=== PATIENT | male | born 1970 | race African-American/Black ===

== ENCOUNTER 2022-05-25 06:33 | Inpatient (IN) | payer SELFPAY ==
[~2022-05-25] VITALS: Ht 172.7 cm; Wt 76.7 kg
[2022-05-25] MEDS ORDERED: IOHEXOL-350 100 ML BOTTLE ONE (07:16)
[2022-05-25 07:28] LABS: EOSINOPHILS % 0.8 % (0.0-5.0); HEMATOCRIT. 40.7 % (42.0-52.0); HEMOGLOBIN. 13.4 g/dL (14.0-18.0); LYMPHOCYTES % 36.6 % (20.0-50.0); MEAN CORPUSCULAR HEMOGLOBIN 28.4 pg (28.0-32.0); MEAN CORPUSCULAR VOLUME 86.3 fL (80.0-94.0); MEAN PLATELET VOLUME 7.1 fl (7.4-10.4); MONOCYTES % 6.7 % (2.0-8.0); NEUTROPHILS % 54.9 % (40.0-76.0); PLATELET 276 x1000/uL (130-400); RED BLOOD CELL COUNT 4.71 mill/uL (4.7-6.1); RED CELL DISTRIBUTION WIDTH 15.1 % (11.6-14.6)
[2022-05-25 07:36] LABS: CHLORIDE 103 mEq/L (98-107)
[2022-05-25 07:47] LABS: ETHANOL BLOOD < 10 mg/dL
[2022-05-25] MEDS ORDERED: ASPIRIN 325MG EC TABLET PO ONE (08:30)
[2022-05-25 10:36] LABS: CLARITY URINE CLEAR (CLEAR); COLOR URINE YELLOW (YELLOW); KETONES URINE NEGATIVE (NEGATIVE); LEUKOCYTE ESTERASE URINE NEGATIVE (NEGATIVE); NITRITE URINE NEGATIVE (NEGATIVE); OCCULT BLOOD URINE NEGATIVE (NEGATIVE); PROTEIN URINE NEGATIVE (NEGATIVE); SPECIFIC GRAVITY URINE 1.084 (1.005-1.030); UROBILINOGEN URINE 0.2 E.U./dL (0.2-1.0)
[2022-05-25 11:20] LABS: *AMPHETAMINES SCREEN URINE NEGATIVE (NEGATIVE); *BARBITURATES SCREEN URINE NEGATIVE (NEGATIVE); *BENZODIAZEPINES SCREEN URINE NEGATIVE (NEGATIVE); *COCAINE SCREEN URINE NEGATIVE (NEGATIVE); CANNABINOID URINE SCREEN NEGATIVE (NEGATIVE); METHADONE URINE SCREEN NEGATIVE (NEGATIVE); OPIATES URINE SCREEN NEGATIVE (NEGATIVE); PHENCYCLIDINE URINE SCREEN NEGATIVE (NEGATIVE)
[2022-05-25] MEDS ORDERED: DOCUSATE SODIUM 100MG CAPSULE PO PRN (11:30)
[2022-05-25] MEDS ORDERED: ACETAMINOPHEN 325MG TABLET PO PRN ×2 (11:30)
[2022-05-25] MEDS ORDERED: CLONIDINE 0.1MG TABLET PO PRN (11:30)
[2022-05-25] MEDS ORDERED: GUAIFENESIN 200MG/10ML SUGAR FREE UDC PO PRN (11:30)
[2022-05-25] MEDS ORDERED: ONDANSETRON HCL 4MG/2ML INJ IV PRN (11:30)
[2022-05-25] MEDS ORDERED: IPRATROPIUM/ALBUTEROL 0.5-3(2.5)MG/3ML NEB HHN PRN (11:30)
[2022-05-25] MEDS ORDERED: MAGNESIUM/ALUMINUM HYDROXIDE/SIMETHICONE 30ML UDC PO PRN (11:30)
[2022-05-25] MEDS: CLOPIDOGREL 75MG TABLET PO SCH (12:04)
[2022-05-25] MEDS ORDERED: ENOXAPARIN 40MG/0.4ML SYR SUBCUT SCH (14:00)
[2022-05-25] MEDS ORDERED: NICOTINE 7MG PATCH TD PRN (14:00)
[2022-05-25 17:11] LABS: D-DIMER 0.43 mg/L FEU (<0.50)
[2022-05-25] MEDS ORDERED: ATORVASTATIN CALCIUM 40MG TABLET PO SCH (21:00)
[2022-05-25 23:00] VITALS: BP 136/82
[2022-05-26 04:00] VITALS: BP 145/75
[2022-05-26 07:20] LABS: BASOPHILS % 0.3 % (0.0-2.0); CHLORIDE 104 mEq/L (98-107); EOSINOPHILS % 1.1 % (0.0-5.0); HEMATOCRIT. 41.7 % (42.0-52.0); HEMOGLOBIN. 13.7 g/dL (14.0-18.0); LYMPHOCYTES % 42.8 % (20.0-50.0); MEAN CORPUSCULAR HEMOGLOBIN 28.2 pg (28.0-32.0); MEAN CORPUSCULAR VOLUME 85.6 fL (80.0-94.0); MEAN PLATELET VOLUME 7.5 fl (7.4-10.4); MONOCYTES % 7.8 % (2.0-8.0); PLATELET 290 x1000/uL (130-400); RED BLOOD CELL COUNT 4.87 mill/uL (4.7-6.1); RED CELL DISTRIBUTION WIDTH 14.8 % (11.6-14.6)
[2022-05-26 07:29] LABS: PHOSPHORUS 2.5 mg/dL (2.5-4.9)
[2022-05-26 08:00] VITALS: BP 146/91
[2022-05-26] MEDS: CLOPIDOGREL 75MG TABLET PO SCH (08:29)
[2022-05-26] MEDS ORDERED: ASPIRIN 81MG EC TABLET PO SCH (09:00)
[2022-05-26] MEDS ORDERED: ASPI-1406 MT (09:44)
[2022-05-26] MEDS ORDERED: ATOR40TA70 MT (09:44)
[2022-05-26] MEDS ORDERED: CLOP-31 MT (09:44)
[2022-05-26 10:00] VITALS: BP 146/91
== END 2022-05-26 10:50 | disposition home or self-care (01) | DRG 47 ==
LOC: ER 06:33 → EDBEDREQ 08:38 → EDBEDREQSVC 08:38 → EDBEDREQTM 08:38 → 8WST 09:05 → EDBEDREQTM 09:26 → EDBEDREQ 09:26 → ENRESERV 18:34 → CANRESERV 18:34 → ENRESERV 22:14 → 8WST 23:32
PROVIDERS: ADMIT Hospitalist; ATTEND Hospitalist
DX: G45.9 Transient cerebral ischemic attack, unspecified (principal); E44.1 Mild protein-calorie malnutrition; E87.1 Hypo-osmolality and hyponatremia; G81.91 Hemiplegia, unspecified affecting right dominant side; J45.909 Unspecified asthma, uncomplicated; I10 Essential (primary) hypertension; F17.210 Nicotine dependence, cigarettes, uncomplicated; I70.90 Unspecified atherosclerosis; E78.5 Hyperlipidemia, unspecified; D64.9 Anemia, unspecified; Z82.3 Family history of stroke; Z86.73 Personal history of transient ischemic attack (TIA), and cerebral infarction without residual deficits; Z68.25 Body mass index [BMI] 25.0-25.9, adult
CPT/HCPCS: 36415; 70496; 70498; 71045; 80053; 80061; 80305; 80320; 81003; 82962; 83036; 83735; 84100; 85025; 85379; 87426; 93005; 97161; 97166; 99291; J1650; Q9967; G0480